=== PATIENT | female | born 1945 | race Caucasian/White ===

== ENCOUNTER 2024-09-24 06:01 | Emergency (ER) | payer MEDICARE, SELFPAY ==
[2024-09-24 06:24] VITALS: BP 152/71; PULSE 68; RESP 16; TEMP 36.9; O2SAT 98; BMI 24.1
--- NOTE | 2024-09-24 06:57 | ED_ITS ---
HPI - Ear Problem General Chief complaint: Ear Stated complaint: cold and pressure in ears Time Seen by Provider: 09/24/24 06:23 Source: patient Mode of arrival: Ambulatory Related Data Previous Rx's Medication Instructions Recorded azithromycin 250 mg tablet 250 mg PO DAILY 4 days #4 tabs 09/24/24 Allergies Allergy/AdvReac Type Severity Reaction Status Date / Time metronidazole [From Flagyl] Allergy Verified 09/24/24 06:23 Penicillins Allergy Verified 09/24/24 06:23 Sulfa (Sulfonamide Allergy Verified 09/24/24 06:23 Antibiotics) Patient History Social History Smoking Status: Never smoker Smoking Status: Never smoker Exam Narrative Exam Narrative: GENERAL: Well-developed patient, in mild distress. HEAD: Atraumatic. Normocephalic. EYES: Pupils equal round and reactive. Extraocular motions intact. No scleral icterus. No injection or drainage. ENT: Nose without bleeding, purulent drainage. Throat without erythema, tonsillar hypertrophy or exudate. Airway patent. Left TM with inferior bulge and purulence on base floor EAC. Right TM with serous fluid behind, no fluid in the EAC. NECK: Trachea midline. Non tender CARDIOVASCULAR: Regular rate and rhythm without murmurs, gallops, or rubs. RESPIRATORY: Clear to auscultation. Breath sounds equal bilaterally. No wheezes, rales, or rhonchi. GASTROINTESTINAL: Abdomen soft, non-tender, nondistended. EXTREMITIES: No edema or joint tenderness. BACK: Nontender without deformity or crepitance. No flank tenderness. NEURO: AOx3. Motor functions grossly nonfocal SKIN: No rash or erythema of visible areas Initial Vital Signs Initial Vital Signs: Vital Signs Temperature 98.5 F 09/24/24 06:24 Pulse Rate 68 09/24/24 06:24 Respiratory Rate 16 09/24/24 06:24 Blood Pressure 152/71 H 09/24/24 06:24 Pulse Oximetry 98 09/24/24 06:24 Oxygen Delivery Method Room Air 09/24/24 06:24 Course Orders Ordered: Discontinued Medications Azithromycin (Azithromycin 250 Mg Tablet) 500 mg PO NOW ONE Stop: 09/24/24 07:09 Last Admin: 09/24/24 07:19 Dose: 500 mg Neomycin/Polymyxin/Hydrocortisone (Neomy/Polym B/Hc Otic 10 Ml) 4 drops EAR- LEFT NOW ONE Stop: 09/24/24 07:09 Last Admin: 09/24/24 07:19 Dose: 4 drops Vital Signs Vital signs: Vital Signs - 8 hr 09/24/24 06:24 Temperature 98.5 F Pulse Rate 68 Respiratory Rate 16 Blood Pressure 152/71 H Pulse Oximetry 98 Oxygen Delivery Method Room Air Medical Decision Making MDM Narrative Medical decision making narrative: 79-year-old female with bilateral ear pain [id number], with some significantly increased left-sided ear pain and bloody discharge. Symptoms suspicious for middle ear infection and perforation, which was consistent with the appearance on physical examination. Multiple antibiotic drug allergies noted. Oral azithromycin dose given, further prescription sent to your pharmacy. Topical Cortisporin otic to be placed in the left ear. Serous otitis media changes noted in the right that does not appear infected at this time, right EAC normal. Patient informed. Return precautions discussed Discharge Plan Departure Patient Disposition: Home Clinical Impression: Otitis media Activity Restrictions/Additional Instructions: Bilateral [id number]-right ear pain with recent cough cold symptoms, with significantly increased left-sided pain and then bloody drainage. Symptoms suspicious for left middle ear infection leading to perforation and drainage. On examination there is some bloody purulent looking fluid in the base of the left ear canal, visible portion of the left ear canal is dull in appearance. Oral antibiotics prescribed to help address the middle ear infection, you have a number of antibiotic allergies, we will use azithromycin antibiotic, 1st dose given in the emergency department, further antibiotics sent to your pharmacy. Topical Cortisporin can be used in the left ear canal 2-3 times daily for the next few days. Consider recheck of your ear next week after course of antibiotics. Right ear does have some clear fluid behind it but does not appear infected at this time, though maybe contributing to some congestion and discomfort on the right ear as well. Take antibiotics as prescribed. Drink plenty of fluids. Take Tylenol as needed for discomfort. Recheck with Otolaryngology after course of treatment of antibiotics. Contact information given for local otolaryngology. Return earlier to this/nearest emergency department for any change worsening symptoms or any concerns prior Prescriptions: New azithromycin 250 mg tablet 250 mg PO DAILY 4 Days Qty: 4 0RF Rx Instructions: start on day 2 of therapy Referrals: Jakub Guevara [Other] Nick Hnut MD [Physician] - Stand Alone Forms: Patient Portal/API/Survey
[2024-09-24] MEDS: AZITHROMYCIN 250 MG TABLET 500 MG PO (07:19)
[2024-09-24] MEDS: NEOMY/POLYM B/HC OTIC 10 ML 4 DROPS EAR-LEFT (07:19)
[2024-09-24 07:35] VITALS: BP 142/70; PULSE 60; RESP 18; TEMP 36.9; O2SAT 98
== END 2024-09-24 07:35 | disposition home or self-care (01) ==
PROVIDERS: Emergency Provider Emergency Medicine
DX: H65.92 Unspecified nonsuppurative otitis media, left ear (principal)
CPT/HCPCS: 99283